=== PATIENT | male | born 1945 | race Caucasian/White ===

== ENCOUNTER 2021-08-02 10:35 | Emergency (ER) | payer OTHER, MEDICARE ==
[2021-08-02 11:06] VITALS: BP 120/59; PULSE 74; TEMP 98.4; BMI 22.2
[2021-08-02] MEDS ORDERED: LIDO 2%/EPI 1:200000 PRESRVFRE (20 ML SDVIAL) ONE (11:10)
== END 2021-08-02 11:45 | disposition home or self-care (01) ==
LOC: FER 10:35
DX: S01.81XA Laceration without foreign body of other part of head, initial encounter (principal); W22.8XXA Striking against or struck by other objects, initial encounter
CPT/HCPCS: 99282-25